=== PATIENT | male | born 1965 | race Caucasian/White ===

== ENCOUNTER 2020-06-26 16:09 | Emergency (ER) | payer OTHER, MEDICARE ==
--- NOTE | 2020-06-26 16:22 | ER Document Report ---
ED Medical Screen (RME) - General Chief Complaint: Syncope Stated Complaint: SYNCOPE Time Seen by Provider: 06/26/20 16:20 Mode of Arrival: Medic Information source: Patient, Relative Notes: Patient had a sudden onset headache pain around 2 PM. Patient states that at the time he felt like his head exploded and he was diaphoretic. Patient states that he lost his hearing for a few seconds. Patient states that he has had nausea and has vomited about 10 times. Patient complains of left foot numbness. states that patient called her upstairs and when she went upstairs she found him and he became unresponsive and started to have a string in which his arms nicolás up to his chest and she thought he might of had a seizure although patient has no history of seizures. Patient states that this is not typical of migraines that he usually has and this is his worst headache. I have greeted and performed a rapid initial assessment of this patient. A comprehensive ED assessment and evaluation of the patient, analysis of test results and completion of the medical decision making process will be conducted by additional ED providers. TRAVEL OUTSIDE OF THE [place] IN LAST 30 DAYS: No - Related Data Allergies/Adverse Reactions: diphenoxylate [Diphenoxylate] Allergy (Verified 10/06/12 14:01) throat swelling Past Medical History GI Medical History: Reports: Hx Gastroesophageal Reflux Disease Psychiatric Medical History: Reports: Hx Anxiety Physical Exam - Vital signs Vitals: Temp Pulse Resp BP Pulse Ox 97.8 F 111 H 20 150/105 H 95 06/26/20 16:13 06/26/20 16:13 06/26/20 16:13 06/26/20 16:13 06/26/20 16:13 - Neurological Liz Coma Scale Eye Opening: Spontaneous [place] Coma Scale Verbal: Oriented [place] Coma Scale Motor: Obeys Commands Liz Coma Scale Total: 15 Sensory: Other - Left foot numbness Course - Vital Signs Vital signs: Temp Pulse Resp BP Pulse Ox 97.8 F 111 H 20 150/105 H 95 06/26/20 16:13 06/26/20 16:13 06/26/20 16:13 06/26/20 16:13 06/26/20 16:13
[2020-06-26] MEDS ORDERED: ONDANSETRON HCL INJ/PF 4 MG/2 ML SDV IV ONE (16:34)
[2020-06-26] MEDS ORDERED: LORAZEPAM INJ 2 MG/1 ML VIAL IV ONE (16:35)
[2020-06-26] MEDS ORDERED: LEVETIRACETAM 1000 MG/NACL-ISO 1,000 MG/100 ML RTUPB IV SCH ×2 (16:45→17:00)
--- NOTE | 2020-06-26 16:50 | ER Document Report ---
ED Medical Screen (RME) - General Chief Complaint: Syncope Stated Complaint: SYNCOPE Time Seen by Provider: 06/26/20 16:20 Primary Care Provider: JEFF,LUDIN [Primary Care Provider] - Follow up as needed Mode of Arrival: Medic Information source: Relative - Nikole Notes: 06/26/20 16:24 Charge nurse advised of patient status and need for room, patient was then taken to radiology department for imaging, charge nurse states that an RN will be over to meet patient in radiology. Consulted with Dr. arora to advise him of patient status and concerned about strokelike symptoms, Dr. arora to the radiology department for evaluation. - Vital Signs Vital signs: Temp Pulse Resp BP Pulse Ox 97.8 F 111 H 20 150/105 H 95 06/26/20 16:13 06/26/20 16:13 06/26/20 16:13 06/26/20 16:13 06/26/20 16:13 Original Note: ED Medical Screen (RME) - General Chief Complaint: Syncope Stated Complaint: SYNCOPE Time Seen by Provider: 06/26/20 16:20 Mode of Arrival: Medic Information source: Patient, Relative Notes: Patient had a sudden onset headache pain around 2 PM. Patient states that at the time he felt like his head exploded and he was diaphoretic. Patient states that he lost his hearing for a few seconds. Patient states that he has had nausea and has vomited about 10 times. Patient complains of left foot numbness. states that patient called her upstairs and when she went upstairs she found him and he became unresponsive and started to have a string in which his arms nicolás up to his chest and she thought he might of had a seizure although patient has no history of seizures. Patient states that this is not typical of migraines that he usually has and this is his worst headache. I have greeted and performed a rapid initial assessment of this patient. A comprehensive ED assessment and evaluation of the patient, analysis of test results and completion of the medical decision making process will be conducted by additional ED providers. TRAVEL OUTSIDE OF THE [place] IN LAST 30 DAYS: No - Related Data Allergies/Adverse Reactions: diphenoxylate [Diphenoxylate] Allergy (Verified 10/06/12 14:01) throat swelling Past Medical History GI Medical History: Reports: Hx Gastroesophageal Reflux Disease Psychiatric Medical History: Reports: Hx Anxiety Physical Exam - Vital signs Vitals: Temp Pulse Resp BP Pulse Ox 97.8 F 111 H 20 150/105 H 95 06/26/20 16:13 06/26/20 16:13 06/26/20 16:13 06/26/20 16:13 06/26/20 16:13 - Neurological [place] Coma Scale Eye Opening: Spontaneous [place] Coma Scale Verbal: Oriented Liz Coma Scale Motor: Obeys Commands Liz Coma Scale Total: 15 Sensory: Other - Left foot numbness Course - Vital Signs Vital signs: Temp Pulse Resp BP Pulse Ox 97.8 F 111 H 20 150/105 H 95 06/26/20 16:13 06/26/20 16:13 06/26/20 16:13 06/26/20 16:13 06/26/20 16:13 My notes 54-year-old male arrives by POV with his Nikole who is road train driver. Patient awoke this afternoon with severe headache 10 out of 10 and took a sumatriptan migraine headache pill around 1430. His brought the headache pill to him. Shortly thereafter he he had loss of consciousness and had seizu re-like activity according to his with clenching of teeth and flexion of his arms with tremors and sonorous snoring respirations. This resolved after several minutes and he vomited x10 and was complaining of left foot numbness. reports his eyes were open but he had no response. This is never happened before according to his Nikole. He does smoke 1 pack/cigarettes daily since he was 17 years old and does not drink any alcohol but does drink 2 L of DrMichelle Huitron on a daily basis. He is a of with PTSD. He has a history of [place] phobia. Upon Tati's history of patient.. She came to me and told me of his case she and I went to the CT room and I introduced myself to his Nikole and patient was receiving CT scan as I was speaking with Nikole. I called to [facility] for stroke alert around 1645 speaking to [place] foreign broadcast specialist. I spoke with Micky for Dr. Morales there at [facility] at 1650 and she advises keeping blood pressure around 140 systolic. TRAVEL OUTSIDE OF THE [place] IN LAST 30 DAYS: No - HPI Onset: Just prior to arrival - 1430 Onset/Duration: Sudden, Persistent Quality of pain: Achy Severity: Severe Pain Level: 5 Associated Symptoms: Headache, Vomiting Exacerbated by: Movement, Walking Relieved by: Denies Similar symptoms previously: Yes Recently seen / treated by doctor: No - Related Data Allergies/Adverse Reactions: diphenoxylate [Diphenoxylate] Allergy (Verified 10/06/12 14:01) throat swelling Past Medical History - General Information source: Patient, Relative - Social History Cigarette use (# per day): Yes - 1 ppd since 17 yo Chew tobacco use (# tins/day): No Frequency of alcohol use: None - Does drink [address] Pepper on a daily Drug Abuse: None Lives with: Family Family history: Reviewed & Not Pertinent GI Medical History: Reports: Hx Gastroesophageal Reflux Disease Psychiatric Medical History: Reports: Hx Anxiety Review of Systems - Review of Systems Constitutional: See HPI, Weakness EENT: No symptoms reported Cardiovascular: See HPI, Dizziness, Lightheaded Respiratory: No symptoms reported Gastrointestinal: See HPI, Nausea, Vomiting Genitourinary: No symptoms reported Male Genitourinary: No symptoms reported Musculoskeletal: No symptoms reported Skin: No symptoms reported Hematologic/Lymphatic: No symptoms reported Neurological/Psychological: See HPI, Weakness, Headaches Physical Exam - Vital signs Vitals: Temp Pulse Resp BP Pulse Ox 97.8 F 111 H 20 150/105 H 95 06/26/20 16:13 06/26/20 16:13 06/26/20 16:13 06/26/20 16:13 06/26/20 16:13 Interpretation: Hypertensive - HEENT Head: Normocephalic, Atraumatic Eyes: Normal Eyelashes: Normal Pupils: PERRL Ears: Normal External canal: Normal Hearing loss: Left Sinus: Normal Mouth/Lips: Normal Mucous membranes: Dry Pharynx: Normal Neck: Normal - Respiratory Respiratory status: No respiratory distress - Cardiovascular Rhythm: Tachycardia - 111 - Abdominal Inspection: Normal Distension: No distension Bowel sounds: Normal Tenderness: Nontender Organomegaly: No organomegaly - Rectal Prostate: Other - deferred - Genitourinary Scrotum: Other - deferred - Back Back: Normal - Extremities General upper extremity: Normal inspection General lower extremity: Normal inspection - Neurological Neuro grossly intact: Yes Orientation: Disoriented to time [place] Coma Scale Eye Opening: Spontaneous [place] Coma Scale Verbal: Oriented Liz Coma Scale Motor: Obeys Commands [place] Coma Scale Total: 15 Speech: Dysarthria Cranial nerves: Normal Cerebellar coordination: Normal Motor strength normal: LLE - numbness left foot but from all ext - Psychological Associated symptoms: Anxious - Skin Skin Temperature: Warm Skin Moisture: Dry Course - Vital Signs Vital signs: Temp Pulse Resp BP Pulse Ox 97.8 F 111 H 20 150/105 H 95 06/26/20 16:13 06/26/20 16:13 06/26/20 16:13 06/26/20 16:13 06/26/20 16:13 - Laboratory Result Diagrams: 06/26/20 16:45 06/26/20 16:45 Laboratory results interpreted by me: 06/26/20 06/26/20 16:45 16:45 WBC 13.2 H Absolute Neuts (auto) 10.4 H Seg Neutrophils % 78.5 H Glucose 131 H Creatine Kinase 52 L - Diagnostic Test Radiology reviewed: Reports reviewed - EKG Interpretation by Me EKG shows normal: Sinus rhythm Rate: Normal Rhythm: NSR - Tachycardia [address] elevation no ST depression no T wave depression no T wave elevation and axis within normal limits Critical Care Note - Critical Care Note Comments: Patient was transferred by helicopter to [facility]. Facesheet and images were sent to [facility] and also sent with the patient by disc. Patient was sent off by helicopter by 1725 patient was stable at that time. Doctor's Discharge - Discharge Clinical Impression: SAH (subarachnoid hemorrhage) CVA (cerebral vascular accident) Qualifiers: CVA mechanism: unspecified Qualified Code(s): I63.9 - Cerebral infarction, unspecified Condition: Good Disposition: CRITICAL ACCESS HOSPITAL Additional Instructions: Transfer this patient to [facility] neurological division Referrals: [facility] [Primary [facility]] - Follow up as needed
[2020-06-26] MEDS ORDERED: NICARDIPINE HCL RTU, ISO-OS 20 MG/200 ML RTUINJ IV ONE (16:57)
[2020-06-26] MEDS ORDERED: NICARDIPINE HCL RTU, ISO-OS 20 MG/200 ML RTUINJ IV PRN (16:58)
--- NOTE | 2020-06-26 16:58 | RADIOLOGY REPORT (SQ) ---
EXAM DESCRIPTION: CHEST SINGLE VIEW IMAGES COMPLETED DATE/TIME: 06/26/2020 4:39 pm REASON FOR STUDY: LOU, L foot numb COMPARISON: Chest radiograph 05/24/2016 NUMBER OF VIEWS: One view. TECHNIQUE: Single frontal radiographic view of the chest acquired. LIMITATIONS: None. FINDINGS: LUNGS AND PLEURA: No opacities, masses or pneumothorax. No pleural effusion. MEDIASTINUM AND HILAR STRUCTURES: No masses. Contour normal. HEART AND VASCULAR STRUCTURES: Heart normal in size. Normal vasculature. BONES: No acute findings. HARDWARE: None in the chest. OTHER: No other significant finding. IMPRESSION: NO SIGNIFICANT RADIOGRAPHIC FINDING IN THE CHEST. TECHNICAL DOCUMENTATION: JOB ID: [id number] 2010 [employer]- All Rights Reserved Reading location - IP/workstation name: [email or web address]
--- NOTE | 2020-06-26 16:59 | RADIOLOGY REPORT (SQ) ---
EXAM DESCRIPTION: CT HEAD WITHOUT IMAGES COMPLETED DATE/TIME: 06/26/2020 4:38 pm REASON FOR STUDY: LOU, L foot numb COMPARISON: None. TECHNIQUE: Axial images acquired through the brain without intravenous contrast. Images reviewed wi th bone, brain and subdural windows. Images stored on PACS. All CT scanners at this facility use dose modulation, iterative reconstruction, and/or weight based d osing when appropriate to reduce radiation dose to as low as reasonably achievable (ALARA). [facility]: Dose Right [facility]: CareDose [facility]: Dose Right [facility]: Teradose 4D [facility]: Scientific Media RADIATION DOSE: CT Rad equipment meets quality standard of care and radiation dose reduction techniq ues were employed. CTDIvol: 53.2 mGy. DLP: 991 mGy-cm. mGy. LIMITATIONS: None. FINDINGS: VENTRICLES: Normal size and contour. CEREBRUM: No masses. No hemorrhage. No midline shift. No evidence for acute infarction. Normal gra y/white matter differentiation. No areas of low density in the white matter. CEREBELLUM: No masses. No hemorrhage. No alteration of density. No evidence for acute infarction. EXTRAAXIAL SPACES: There is diffuse subarachnoid hemorrhage throughout the sulci and within the quadr igeminal cistern. A moderate-sized collection in the region of the anterior cerebral artery is noted . ORBITS AND GLOBE: No intra- or extraconal masses. Normal contour of globe without masses. CALVARIUM: No fracture. PARANASAL SINUSES: No fluid or mucosal thickening. SOFT TISSUES: No mass or hematoma. OTHER: No other significant finding. 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 CTA is avail able. Neurosurgical consultation is recommended. EVIDENCE OF ACUTE STROKE: NO. COMMENT: Critical findings were relayed to Marianne Aldana in the emergency department via phone at 1647 hours 06/26/2020. She expressed understanding of the findings. Quality ID # [id number]: Final reports with documentation of one or more dose reduction techniques (e.g., Au tomated exposure control, adjustment of the mA and/or kV according to patient size, use of iterative reconstruction technique) TECHNICAL DOCUMENTATION: JOB ID: [id number] 2010 [employer]- All Rights Reserved Reading location - IP/workstation name: [email or web address]
[2020-06-26 17:07] LABS: ABSOLUTE EOSINOPHILS # (AUTO) 0.1 10^3/uL (0.0-0.6); ABSOLUTE LYMPHOCYTES (AUTO) 2.1 10^3/uL (0.5-4.7); ABSOLUTE MONOCYTES (AUTO) 0.6 10^3/uL (0.1-1.4); ABSOLUTE NEUT (AUTO) 10.4 10^3/uL (1.7-8.2); BASOPHILS % (AUTO) 0.3 % (0-2); EOSINOPHILS % (AUTO) 0.6 % (0-6); HEMATOCRIT 45.2 % (37.9-51.0); HEMOGLOBIN 15.3 g/dL (13.5-17.0); LYMPHOCYTES % (AUTO) 15.7 % (13-45); MEAN CORPUSCULAR HEMOGLOBIN 31.1 pg (27.0-33.4); MEAN CORPUSCULAR HGB CONC 33.9 g/dL (32.0-36.0); MEAN CORPUSCULAR VOLUME 92 fl (80-97); MONOCYTES % (AUTO) 4.9 % (3-13); PLATELET COUNT 352 10^3/uL (150-450); RED BLOOD COUNT 4.93 10^6/uL (4.35-5.55); SEGMENTED NEUTROPHILS % (AUTO) 78.5 % (42-78); TOTAL CELLS COUNTED % (AUTO) 100 %; WHITE BLOOD COUNT 13.2 10^3/uL (4.0-10.5)
[2020-06-26 17:10] LABS: INTERNATIONAL RATION (INR) 0.88; PROTHROMBIN TIME 12.2 SEC (11.4-15.4)
[2020-06-26 17:11] LABS: PARTIAL THROMBOPLASTIN TIME 27.2 SEC (23.5-35.8)
[2020-06-26 17:24] LABS: ALBUMIN 4.4 g/dL (3.5-5.0); ALKALINE PHOSPHATASE 101 U/L (38-126); ANION GAP 9 (5-19); ASPARTATE AMINO TRANSFERASE 23 U/L (17-59); BILIRUBIN,DIRECT 0.4 mg/dL (0.0-0.4); BILIRUBIN,TOTAL 0.4 mg/dL (0.2-1.3); BLOOD UREA NITROGEN 11 mg/dL (7-20); CALCIUM 9.1 mg/dL (8.4-10.2); CARBON DIOXIDE 27 mmol/L (22-30); CHLORIDE 103 mmol/L (98-107); CREATINE KINASE 52 U/L (55-170); GLUCOSE 131 mg/dL (75-110); POTASSIUM 3.7 mmol/L (3.6-5.0); TOTAL PROTEIN 7.3 g/dL (6.3-8.2)
[2020-06-26 17:37] LABS: CREATINE KINASE MB 0.45 ng/mL (<4.55)
[2020-06-26 17:39] LABS: TROPONIN I < 0.012 ng/mL
[2020-06-26 17:43] VITALS: BP 148/111
--- NOTE | 2020-06-26 20:51 | EKG REPORT ---
SEVERITY:- BORDERLINE ECG - SINUS TACHYCARDIA [Now Present] PROBABLE LEFT ATRIAL ABNORMALITY [Insig. Chg.] MINIMAL ST DEPRESSION, ANTEROLATERAL LEADS [Insig. Chg.] SIGNIFICANT RHYTHM CHANGES [Now Absent] SINUS RHYTHM : Confirmed by: Angeles óLpez MD 26-Jun-2020 20:51:06
== END 2020-06-26 17:25 | disposition short-term general hospital (02) ==
LOC: ER 16:09
DX: I60.9 Nontraumatic subarachnoid hemorrhage, unspecified (principal); R20.0 Anesthesia of skin; R11.2 Nausea with vomiting, unspecified; R53.1 Weakness; R42 Dizziness and giddiness; R00.0 Tachycardia, unspecified; G43.909 Migraine, unspecified, not intractable, without status migrainosus; F17.210 Nicotine dependence, cigarettes, uncomplicated; F43.10 Post-traumatic stress disorder, unspecified; Z88.8 Allergy status to other drugs, medicaments and biological substances
CPT/HCPCS: 93005; 99285; 96375; 96365; 96367; 36415; 82553; 82550; 85025; 85610; 85730; 80053; 84484; 71045; 70450; 93010; J2060; J2405; J3490; J1953